=== PATIENT | female | born 1970 | race Caucasian/White ===

== ENCOUNTER 2019-05-24 05:54 | Emergency (ER) | payer MEDICAID, SELFPAY ==
[2019-05-24 05:55] VITALS: BP 149/90; PULSE 76; RESP 18; TEMP 36.3; O2SAT 99; BMI 15.0
--- NOTE | 2019-05-24 06:10 | ED.RN ---
BLOOD SUGAR 101.
[2019-05-24 06:16] LABS: Bedside Glucose 101 mg/dL (70-110)
--- NOTE | 2019-05-24 06:26 | CT_ITS ---
Clinical statement: facial numbness and tingling, now resolved EXAMINATION: CT Head or Brain W/O Contrast Injection TECHNIQUE: Multiple axial images were obtained of the brain without intravenous contrast. A radiation dose optimization technique was used for this scan. IV Contrast dosage and agent: None COMPARISON: None FINDINGS: Normal ventricles and normal olivera-white matter differentiation. Small CSF perivascular space inferior to the left basal ganglia and not unusual. No intracranial mass, hemorrhage, or acute parenchymal abnormality. The posterior fossa structures are unremarkable. No suspicious extra-axial fluid collection. As visualized, the mastoids are clear. CT/Brain/Head without Contrast IMPRESSION: Normal CT brain without contrast. Individualized dose optimization techniques were used for this CT. at 0656 Reported and signed by: Harman Casas MD Electronically Signed: Harman Casas, at 6:55 EDT Tel , Service support ,
--- NOTE | 2019-05-24 06:26 | EKG12_ITS ---
Test Reason : NEURO S/SX Blood Pressure : / mmHG Vent. Rate : 067 BPM Atrial Rate : 067 BPM P-R Int : 156 ms QRS Dur : 078 ms QT Int : 424 ms P-R-T Axes : 063 022 044 degrees QTc Int : 448 ms Normal sinus rhythm Normal ECG Confirmed by AYSHA GREY, DELBERT ([id number]), sound editor PERRY CARREON ([id number]) on 05/28/2019 9:07:22 AM Referred By: ZEE Confirmed By:DELBERT OLMSTEAD MD
--- NOTE | 2019-05-24 06:28 | ED.VISSUMM ---
- ER Visit Summary Date of Service: 05/24/19 Chief Complaint: Numbness and tingling History of Present Illness: The patient is a 48 F who presents with numbness and tingling that began today while she was driving to work. Patient states she clocked into work and told her [employer] supervisor that she did not feel well. Patient then came to the emergency department. Patient states that upon arrival she felt fine. Patient states she has a history of prior TIA. Patient states her numbness and tingling was more on the left side of her head and neck and chest. Patient denies any difficulty swallowing or difficulty talking. Patient denies any weakness. Patient denies any headaches. Patient denies any chest pain or shortness of breath. Patient denies any nausea or vomiting. Physical Examination: Vital signs are stable. Patient is afebrile. Patient is in no acute distress. Oral mucosa is pink and moist. Neck is supple. Trachea is midline. There is no JVD noted. Heart was regular rate and rhythm. Lungs are clear and equal bilaterally. Abdomen is soft. Bowel sounds are normal. There is no tenderness. There is no rebound or guarding noted. Skin is warm dry. Cranial nerves II through XII are intact. There are no focal motor or sensory deficits noted. Extremities are intact. There is no calf tenderness or edema. Test Results: CBC, comprehensive metabolic profile, troponin were obtained and were all within normal limits. CT scan of the brain was obtained. There is no acute intracranial abnormality. This was interpreted by the radiologist and reviewed by myself. EKG showed a normal sinus rhythm with a rate of 67. There are no acute ST or T wave changes. Emergency Department Course and Treatment: Patient was given IV fluids. Patient had no further complaints during her emergency department stay. Patient was advised to follow-up with her primary care physician in 5 to 7 days for further evaluation. Patient understood and was agreeable with the plan. All questions were answered. Disposition: Discharge home Impression: Paresthesias This note was generated with [employer] dictation software. It may contain incorrect words, spelling, and punctuation that were not noted in review of the chart prior to signing ED Disposition - Plan for ED Patient: Disposition: Home or Assisted Living Diagnosis: Paresthesias Instructions: ED Paraesthesias Referrals: NOT,DEFINED [NON-STAFF] - 5-7 Days
[2019-05-24 06:34] LABS: Absolute Lymphocyte Count 2.68 X10^3/uL (0.83-4.51); Absolute Neutrophil Count 8.3 X10^3/uL (2.0-7.7); Basophil# 0.03 X10^3/uL; Basophil% 0.2 % (0-1); Eosinophil# 0.14 X10^3/uL; Eosinophils% 1.2 % (0-5); Hematocrit 42.7 % (37-47); Lymphocyte # 2.68 X10^3/ul (4.0); Lymphocyte % 22.2 % (19-41); Mean Corp Hgb Conc 32.8 g/dL (32-36); Mean Corpuscular Hgb 30.4 pg (27.0-32.0); Mean Corpuscular Volume 92.6 fL (81-99); Mean Platelet Vol. 10.9 fl (6.2-12.0); Monocyte# 0.82 X10^3/uL; Monocyte% 6.8 % (0-10); NRBC Flagged by Analyzer 0 % (0-5); Neutrophil # 8.34 X10^3/uL (2.7-7.7); Neutrophil % 69.3 % (47-70); Platelet Count 218 K/mm3 (150-450); RBC Distribution Width CV 13.5 % (11.6-14.6); RBC Distribution Width SD 45.8 fl (35.1-43.9); Red Blood Count 4.61 M/mm3 (4.2-5.4); White Blood Count 12.1 K/mm3 (4.4-11.0)
[2019-05-24] MEDS: 0.9% Normal Saline 1,000 ML 1000 ML IV (06:40)
[2019-05-24 06:46] LABS: ALB/GLOB Ratio 0.9 RATIO (0.9-2.4); AST(SGOT) 22 U/L (15-37); Alanine Aminotransfer ALT/SGPT 25 U/L (13-56); Albumin, Serum 3.4 g/dL (3.2-5.0); Alkaline Phosphatase 93 U/L (45-117); Anion Gap 5 (5-15); BUN 8 mg/dL (7-18); BUN/Creat Ratio 11.9 RATIO (10-20); Calcium,Total 8.2 mg/dL (8.5-10.1); Chloride 110 mmol/L (98-107); Creatinine, Serum 0.67 mg/dL (0.55-1.02); EST Glomerular Filtration Rate 99 mL/min (>60); Est Glom Filt Rate - Afr Amer 119 mL/min (>60); Globulin 3.6 g/dL (2.2-4.2); Glucose 93 mg/dL (74-106); Potassium 3.8 mmol/L (3.5-5.1); Sodium Level 140 mmol/L (136-145)
[2019-05-24 07:41] VITALS: BP 136/76; PULSE 67; RESP 16; O2SAT 95
== END 2019-05-24 08:31 | disposition home or self-care (01) ==
PROVIDERS: Emergency Provider Emergency Medicine
DX: R20.2 Paresthesia of skin (principal); Z86.73 Personal history of transient ischemic attack (TIA), and cerebral infarction without residual deficits
CPT/HCPCS: 70450; 80053; 82962; 84484; 85025; 93005; 96360; 99285; J7030; A4216

== ENCOUNTER 2019-11-16 12:27 | Emergency (ER) | payer MEDICAID, SELFPAY ==
[2019-11-16 12:28] VITALS: BP 146/113; PULSE 97; RESP 15; TEMP 37.4; O2SAT 99; BMI 31.5
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
[2019-11-16 13:52] LABS: Absolute Lymphocyte Count 2.39 X10^3/uL (0.83-4.51); Absolute Neutrophil Count 7.8 X10^3/uL (2.0-7.7); Basophil# 0.04 X10^3/uL; Basophil% 0.4 % (0-1); Eosinophil# 0.06 X10^3/uL; Eosinophils% 0.5 % (0-5); Hematocrit 45.1 % (37-47); Hemoglobin 14.5 g/dL (12.0-15.0); Lymphocyte # 2.39 X10^3/ul (4.0); Lymphocyte % 21.8 % (19-41); Mean Corp Hgb Conc 32.2 g/dL (32-36); Mean Corpuscular Hgb 30.7 pg (27.0-32.0); Mean Corpuscular Volume 95.3 fL (81-99); Monocyte# 0.63 X10^3/uL; Monocyte% 5.7 % (0-10); NRBC Flagged by Analyzer 0 % (0-5); Neutrophil # 7.82 X10^3/uL (2.7-7.7); Neutrophil % 71.3 % (47-70); Platelet Count 209 K/mm3 (150-450); RBC Distribution Width CV 13.4 % (11.6-14.6); RBC Distribution Width SD 47.7 fl (35.1-43.9); Red Blood Count 4.73 M/mm3 (4.2-5.4)
[2019-11-16 13:54] LABS: Amphetamine Urine VISTA NEGATIVE (<1000 ng/mL); Barbiturate Urine VISTA NEGATIVE (< 200 ng/mL); Benzodiazepine Urine VISTA NEGATIVE (< 200 ng/mL); Cocaine Urine VISTA NEGATIVE (< 300 ng/mL); Ecstacy Urine VISTA NEGATIVE (< 500 ng/mL); Methadone Urine VISTA NEGATIVE (< 300 ng/mL); PCP Urine VISTA NEGATIVE (< 25 ng/mL); THC Urine VISTA NEGATIVE (< 50 ng/mL); Vista UDS pH Range 6
[2019-11-16 13:59] LABS: Internal QC Validated? YES +Cl - CLEAR BKGD; Pregnancy, Serum, hCG Quali. NEGATIVE Negative
[2019-11-16 14:02] LABS: Mucous, Urine 0 SEEN /hpf (<or=2+); Red Blood Cells-Urine 0 SEEN /hpf (0-5); White Blood Cells 0 SEEN /hpf (0-5)
[2019-11-16 14:03] LABS: Anion Gap 5 (5-15); BUN 9 mg/dL (7-18); BUN/Creat Ratio 11.4 RATIO (10-20); Calcium,Total 9.3 mg/dL (8.5-10.1); Chloride 110 mmol/L (98-107); Creatinine, Serum 0.79 mg/dL (0.55-1.02); EST Glomerular Filtration Rate 82 mL/min (>60); Est Glom Filt Rate - Afr Amer 99 mL/min (>60); Estimated Creatinine Clearance 63.57 ml/min; Glucose 89 mg/dL (74-106); Potassium 3.5 mmol/L (3.5-5.1); Sodium Level 142 mmol/L (136-145)
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
[2019-11-16 14:09] LABS: Color, Urine Yellow (Yellow); Glucose, Dipstick Normal (Normal); Ketone-Dipstick Negative (Negative); Leukocyte Esterase-Dipstick Negative /ul (Negative); Nitrite-Dipstick Negative (Negative); Occult Blood-Urine Negative /ul (Negative); Protein-Dipstick Negative (Negative); Urine Bilirubin Dipstick Negative (Negative); Urine Clarity Sl. Cloudy (Clear); Urine Urobilinogen 1 mg/dl (Normal)
[2019-11-16 14:13] LABS: Alcohol, Blood (Medical)-Serum < 3.0 mg/dL
[2019-11-16 14:16] LABS: Bacteria 2+ /hpf (None Seen); Squamous Epithelial Cells - UA 0-5 SEEN /hpf (5-10)
--- NOTE | 2019-11-16 15:11 | CM.ED ---
Social Work Patient medically cleared by Dr. Sánchez. Telephone call to [facility]. Referral made. Clinical information faxed. [facility] confirms that [facility] is in network with patient insurance and that there are open female adult beds. Xuan WEEMS, HOANG
--- NOTE | 2019-11-16 16:31 | CM.ED ---
Social Work Telephone call from [facility]. Patient has been accepted by [facility] Patient to admit to [address] [place] [address]. Nursing to call report to [phone]. Updated patient, patient spouse and medical team. [place] slip faxed. Xuan Portillo MSW, HOANG
[2019-11-16 18:00] VITALS: RESP 17
[2019-11-16 18:56] VITALS: BP 135/70; PULSE 84; RESP 16; O2SAT 95
== END 2019-11-16 18:48 ==
LOC: ED 13:15
PROVIDERS: Emergency Provider Emergency Medicine
DX: F29 Unspecified psychosis not due to a substance or known physiological condition (principal); F22 Delusional disorders; I10 Essential (primary) hypertension; Z72.0 Tobacco use
CPT/HCPCS: 80048; 80307; 80320; 81001; 84703; 85025; 99283; G0480

== ENCOUNTER 2020-02-12 11:33 | Observation (INO) | payer MEDICAID, SELFPAY ==
[2020-02-12] VITALS (8 sets, daily range): BP systolic 120–163; BP diastolic 74–110; PULSE 66–99; RESP 14–20; TEMP 36.1–37.1; O2SAT 94–99; BMI 27.4; BMI 29.7
--- NOTE | 2020-02-12 11:39 | ED.RN ---
[facility] [phone]
--- NOTE | 2020-02-12 11:52 | EKG12_ITS ---
Test Reason : FALL Blood Pressure : / mmHG Vent. Rate : 081 BPM Atrial Rate : 081 BPM P-R Int : 142 ms QRS Dur : 080 ms QT Int : 382 ms P-R-T Axes : 055 000 021 degrees QTc Int : 443 ms Normal sinus rhythm Normal ECG Confirmed by AYSHA GREY, DELBERT ([id number]), editorial clerk YAN ROGER ([id number]) on 02/14/2020 8:38:34 AM Referred By: RU Confirmed By:DELBERT OLMSTEAD MD
--- NOTE | 2020-02-12 12:02 | CT_ITS ---
STUDY: CT BRAIN WITHOUT CONTRAST REASON FOR EXAM: Female, 49 years old. FALL, DIZZY, BLACK EYES, BLOODY NOSE RADIATION DOSAGE (If Supplied By Facility): CTDIvol = ( 44.99 ) mGy, DLP = ( 762.36 ) mGycm TECHNIQUE: Transaxial CT imaging of the brain was performed without administration of intravenous contrast material. Individualized dose optimization techniques were used for this CT. COMPARISON: 05/24/2019 FINDINGS: Normal soft tissue structures. Normal calvarium. Normal size ventricles and extra-axial spaces for the patient''s age. Normal white matter tracts of the cerebral hemispheres. Normal basal ganglia and thalami. Normal brainstem. Normal cerebellum. There is no intracranial hemorrhage. There are no findings of an acute ischemic infarction. Normal visualized paranasal sinuses. CT/Brain/Head without Contrast IMPRESSION: Normal unenhanced CT scan of the brain. Electronically Signed: Ranjan Dent MD at 12:18 EST Tel , Service support ,
[2020-02-12 12:19] LABS: Anion Gap 4 (5-15); BUN 9 mg/dL (7-18); BUN/Creat Ratio 10.1 RATIO (10-20); Calcium,Total 8.9 mg/dL (8.5-10.1); Chloride 108 mmol/L (98-107); Creatinine, Serum 0.89 mg/dL (0.55-1.02); EST Glomerular Filtration Rate 71 mL/min (>60); Est Glom Filt Rate - Afr Amer 86 mL/min (>60); Estimated Creatinine Clearance 59.15 ml/min; Glucose 101 mg/dL (74-106); Potassium 3.4 mmol/L (3.5-5.1); Sodium Level 141 mmol/L (136-145)
[2020-02-12] MEDS: Meclizine HCl 25 MG Tablet PO (12:39)
[2020-02-12] MEDS: 0.9% Normal Saline 1,000 ML 150 ML IV (12:39)
[2020-02-12 12:46] LABS: Absolute Lymphocyte Count 2.22 X10^3/uL (0.83-4.51); Absolute Neutrophil Count 9.1 X10^3/uL (2.0-7.7); Basophil# 0.05 X10^3/uL; Basophil% 0.4 % (0-1); Eosinophil# 0.14 X10^3/uL; Eosinophils% 1.1 % (0-5); Hematocrit 43.7 % (37-47); Hemoglobin 14.3 g/dL (12.0-15.0); Lymphocyte # 2.22 X10^3/ul (4.0); Lymphocyte % 17.8 % (19-41); Mean Corp Hgb Conc 32.7 g/dL (32-36); Mean Corpuscular Hgb 30.3 pg (27.0-32.0); Mean Corpuscular Volume 92.6 fL (81-99); Mean Platelet Vol. 12.2 fl (6.2-12.0); Monocyte% 7.2 % (0-10); NRBC Flagged by Analyzer 0 % (0-5); Neutrophil % 73.2 % (47-70); Platelet Count 206 K/mm3 (150-450); RBC Distribution Width CV 13.2 % (11.6-14.6); RBC Distribution Width SD 45.7 fl (35.1-43.9); Red Blood Count 4.72 M/mm3 (4.2-5.4); White Blood Count 12.5 K/mm3 (4.4-11.0)
[2020-02-12 12:50] LABS: Alcohol, Blood (Medical)-Serum < 3.0 mg/dL
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
--- NOTE | 2020-02-12 14:06 | ED.DCSUM_ITS ---
- ER Visit Summary Date of Service: 02/12/20 Chief Complaint: [Fall with injury to head and dizziness] History of Present Illness: The patient is a 49 F [presents to the emergency department stating that she had a fall 5 days ago where she tripped and fell on the porch and struck her face on a concrete bench top. No loss of consciousness. Patient states that she had been doing relatively well until today when she had sudden onset of dizziness while in the car. Patient describes vertiginous symptoms and nausea. She denies any significant headache. She denies neck pain. She denies chest pain or shortness of breath. She not had history of vertigo. She denies recent illness. Dizziness is worse with certain movements.] Physical Examination: [HEENT-PERRLA, EOMI. Cranial nerves II through XII grossly intact. TMs clear. Mucous membranes moist. No adenopathy. Patient h as diffuse ecchymosis about both orbits. Patient has soft tissue swelling over the nasal bridge with tenderness on percussion. No septal hematomas noted. Patient has some ecchymosis over the upper maxilla upper lip. Patient has dentures in place. Midface is stable. No C-spine tenderness on palpation. Cardiovascular-regular rate and rhythm without murmur or ectopy Lungs-clear to auscultation, chest wall stable without crepitus or subcu emphysema Abdomen-normoactive bowel sounds, soft, nontender, no rebound or rigidity, no peritoneal signs. Neuro qlka-emhzoc-tccu and heel kinney testing within normal's, negative Romberg, negative pronator, fundi benign. Hallpike maneuver performed patient got acutely dizzy with lying flat and as well as sitting up however I did not appreciate any significant nystagmus. Extremities-intact ?4, normal range of motion, normal pulses, atraumatic] Test Results: [EKG obtained arrival shows sinus rhythm with a ventricular rate of 81 bpm. CBC with differential showed a slight elevated white count 12.5, hemoglobin 14, hematocrit 44, platelets 206. Chemistries unremarkable. Alcohol was negative. CT scan of the brain showed nothing acute. CT facial bones showed nasal bone fractures that were comminuted.] Emergency Department Course and Treatment: [The line established on arrival. Patient had orthostatic vital signs that were negative. Patient was given Antivert 25 mg p.o. and she continues to complain of dizziness at rest. Patient was ordered Ativan 1 mg IV.] Treatment Plan: [Admit for observation] Disposition: [Admit] Impression: [Vertigo/intractable dizziness] This note was generated with [employer] dictation software. It may contain incorrect words, spelling, and punctuation that were not noted in review of the chart prior to signing ED Disposition - Plan for ED Patient: Referrals: Care Physician,No Primary [Primary Care Provider] -
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
--- NOTE | 2020-02-12 14:17 | NURSING ---
MED SURG JOPPERI VERTIGO OBS
--- NOTE | 2020-02-12 14:32 | PCS.PANDOC ---
PANDEMIC DOCUMENTATION INITIATED: Date: 02/12/2020 Time: 1430
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
[2020-02-12] MEDS: LORazepam 2 MG/ML Syringe 1 MG IV (15:13)
[2020-02-13 03:30] VITALS: BP 103/56; PULSE 73; RESP 16; TEMP 36.8; O2SAT 96
[2020-02-13] MEDS: 0.9% Saline Lock 10 ML Syringe IV (03:46)
[2020-02-13 10:34] VITALS: BP 136/97; PULSE 81; RESP 18; TEMP 36.8; O2SAT 94
--- NOTE | 2020-02-13 14:53 | CASEMGMT ---
CR CINTRON updated that patient will need outpatient vestibular therapy. Script received and provided to patient. Patient denies further needs or concerns at this time.
[2020-02-13 15:34] VITALS: BP 128/73; PULSE 71; RESP 16; TEMP 36.8; O2SAT 96
--- NOTE | 2020-02-13 15:34 | DCINST_ITS ---
- Discharge Diagnoses Current Active Problems: Current Active and Chronic Problems (Last Updated 02/12/20 @ 14:[address] Maxim Coy, DO) Vertigo (Acute) Nasal fracture (Acute) You will use the following diet at home:: No restrictions Your food should be the consistency of: Regular Your liquids should be the consistency of: Regular/Thin Discharge Activity: Return to Normal Activity Weight Bearing Status: Full weight bearing Allergies/Adverse Reactions: Allergies No Known Allergies Allergy (Verified 02/12/20 11:36) Medications to take at Discharge Ibuprofen 200 mg PO DAILY PRN 02/12/20 Diazepam [Valium] 2 mg PO 4X/DAY PRN PRN #15 tablet 02/13/20 The following prescriptions were given: Diazepam [Valium] 2 mg PO 4X/DAY PRN PRN #15 tablet PRN Reason: Vertigo Transmission Status: Sent to [id number] Primary Care Physician: Care Physician,No Primary [Primary Care Provider] - Please follow up with your Primary Care Physician in: in one week concerning your nasal fractures Test Results: Test results from this visit will be discussed in further detail at your follow- up appointment, if applicable.
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
== END 2020-02-13 15:43 | disposition home or self-care (01) ==
LOC: ED 12:57 → MS3 14:20
PROVIDERS: Emergency Provider Emergency Medicine; Visit Provider Internal Medicine
DX: R42 Dizziness and giddiness (principal); S02.2XXA Fracture of nasal bones, initial encounter for closed fracture; W10.9XXA Fall (on) (from) unspecified stairs and steps, initial encounter; Y93.9 Activity, unspecified; Y92.89 Other specified places as the place of occurrence of the external cause; F17.210 Nicotine dependence, cigarettes, uncomplicated
CPT/HCPCS: 70450; 70486; 80048; 82077; 85025; 93005; 96361; 96374; 97161; 99218; 99285; J7030; A4216; G0378

== ENCOUNTER 2024-11-11 20:49 | Emergency (ER) | payer SELFPAY ==
--- NOTE | 2024-11-11 20:52 | EKG12_ITS ---
Test Reason : STROKE ALERT Blood Pressure : */* mmHG Vent. Rate : 90 BPM Atrial Rate : 90 BPM P-R Int : 156 ms QRS Dur : 76 ms QT Int : 368 ms P-R-T Axes : 51 -1 21 degrees QTcB Int : 450 ms Sinus rhythm with occasional Premature ventricular complexes Otherwise normal ECG Confirmed by AYSHA GREY, DELBERT ([id number]), online editor YAN ROGER ([id number]) on 11/13/2024 1:23:27 PM Referred By: JALEN Confirmed By: DELBERT OLMSTEAD MD
--- NOTE | 2024-11-11 20:52 | CT_ITS ---
PROCEDURE: STROKE BRAIN/HEAD WITHOUT CONT 11/11/2024 REASON FOR EXAM: NEURO DEFICIT, ACUTE, STROKE SUSPECTED Thank you 0 TECHNIQUE: Procedure Code: CTBR.ST Modality: CT Procedure: STROKE BRAIN/HEAD WITHOUT CONT Coronal and Sagittal reconstruction series were provided. One or more dose reduction techniques were used (e.g., Automated exposure control, adjustment of the mA and/or kV according to patient size, use of iterative reconstruction technique. COMPARISON: 02/12/2020 FINDINGS: Normal brainstem. Normal cerebellum. No loss of olivera-white differentiation. No hemorrhage. No hydrocephalus. No extra-axial fluid collection. Sinuses are clear. CT/STROKE Brain/Head without Cont IMPRESSION: No acute abnormality. Called to the wheelchair rental clerk at [facility] at 9:10 pm Reading [facility]
[2024-11-11 20:53] VITALS: BP 190/106; PULSE 85; RESP 18; TEMP 37; O2SAT 97; BMI 30.4
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
--- OUTSIDE RECORDS SUMMARY | 2024-11-11 20:55 | XMS RPT_ITS | CCD ---
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 [address] [place], [address] BILIRUBIN URINE Negative Normal Negative [facility] Comment on above: Order Comment: How w as Urine Obtained? CLEAN CATCH Performed By: #### L 400.0001 #### [facility] [address] [place], [address] Clarity (U) Sl. Cloudy Normal Clear [facility] Comment on above: Order Comment: How w as Urine Obtained? CLEAN CATCH Performed By: #### L 400.0001 #### [facility] [address] [place], [address] Color (U) Yellow Normal Yellow [facility] Comment on above: Order Comment: How w as Urine Obtained? CLEAN CATCH Performed By: #### L 400.0001 #### [facility] [address] [place], [address] GLUCOSE, UR Normal Normal Normal [facility] Comment on above: Order Comment: How w as Urine Obtained? CLEAN CATCH Performed By: #### L 400.0001 #### [facility] [address] [place], [address] KETONE UR Negative Normal Negative [facility] Comment on above: Order Comment: How w as Urine Obtained? CLEAN CATCH Performed By: #### L 400.0001 #### [facility] [address] [place], [address] LEUK ESTERASE Negative Normal Negative [facility] Comment on above: Order Comment: How w as Urine Obtained? CLEAN CATCH Performed By: #### L 400.0001 #### [facility] [address] [place], [address] NITRITE UR Negative Normal Negative [facility] Comment on above: Order Comment: How w as Urine Obtained? CLEAN CATCH Performed By: #### L 400.0001 #### [facility] [address] [place], [address] OCCULT BLOOD-UR Negative Normal Negative [facility] Comment on above: Order Comment: How w as Urine Obtained? CLEAN CATCH Performed By: #### L 400.0001 #### [facility] [address] [place], [address] pH UR 6.0 Normal 5.0 - 8.0 [facility] Comment on above: Order Comment: How w as Urine Obtained? CLEAN CATCH Performed By: #### L 400.0001 #### [facility] [address] [place], [address] PROT DIPSTX Negative Normal Negative [facility] Comment on above: Order Comment: How w as Urine Obtained? CLEAN CATCH Performed By: #### L 400.0001 #### [facility] [address] [place], [address] SP.GR. DIPSTX 1.010 Normal 1.002-1.030 [facility] Comment on above: Order Comment: How w as Urine Obtained? CLEAN CATCH Performed By: #### L 400.0001 #### [facility] [address] [place], [address] UROBILI 1 mg/dl High Normal [facility] Comment on above: Order Comment: How w as Urine Obtained? CLEAN CATCH Performed By: #### L 400.0001 #### [facility] [address] [place], [address] Urine Drug Screen (VISTA)on 11-16-2019 Amphetamines Ql (U) Negative Normal <1000 ng/mL [facility] Comment on above: Order Comment: List of Drugs Taken or Suspected? UNK Performed By: #### L 505.5000 #### [facility] [address] [place], [address] BARBITIURATES Negative Normal < 200 ng/mL [facility] Comment on above: Order Comment: List of Drugs Taken or Suspected? UNK Performed By: #### L 505.5000 #### [facility] [address] [place], [address] BENZODIAZIPINE Negative Normal < 200 ng/mL [facility] Comment on above: Order Comment: List of Drugs Taken or Suspected? UNK Performed By: #### L 505.5000 #### [facility] [address] [place], [address] Cocaine Ql (U) Negative Normal < 300 ng/mL [facility] Comment on above: Order Comment: List of Drugs Taken or Suspected? UNK Performed By: #### L 505.5000 #### [facility] [address] [place], [address] ECSTACY Negative Normal < 500 ng/mL [facility] Comment on above: Order Comment: List of Drugs Taken or Suspected? UNK Performed By: #### L 505.5000 #### [facility] [address] [place], [address] Methadone Ql (U) Negative Normal < 300 ng/mL [facility] Comment on above: Order Comment: List of Drugs Taken or Suspected? UNK Performed By: #### L 505.5000 #### [facility] [address] [place], [address] Opiates Ql (U) Negative Normal < 300 ng/mL [facility] Comment on above: Order Comment: List of Drugs Taken or Suspected? UNK Performed By: #### L 505.5000 #### [facility] [address] [place], [address] PCP Negative Normal < 25 ng/mL [facility] Comment on above: Order Comment: List of Drugs Taken or Suspected? UNK Performed By: #### L 505.5000 #### [facility] [address] [place], [address] THC Negative Normal < 50 ng/mL [facility] Comment on above: Order Comment: List of Drugs Taken or Suspected? UNK Performed By: #### L 505.5000 #### [facility] [address] [place], [address] VISTA UDS PH 6 Normal [facility] Comment on above: Order Comment: List of Drugs Taken or Suspected? UNK Performed By: #### L 505.5000 #### [facility] [address] [place], [address] TO BE CONFIRMED Normal [facility] Comment on above: Order Comment: List of Drugs Taken or Suspected? UNK Result Comment: CONF IRMATORY TESTING FOR ALL POSITIVE URINE DRUG SCREEN RESULTS WILL ONLY BE SENT OUT UPON PHYSICIAN ORDER. VISTA Urine Drug Screen methods provide only preliminary analytical test results. A more specific alternate chemical method must be used in order to obtain a confirmed analytical result. Gas chromatography/mass spectrometery (GC/MS) is the preferred confirmatory method. Clinical consideration and professional judgement should be applied to any drug of abuse test result, particularly when preliminary positive results are used. URINE TCA TESTING MUST BE ORDERED SEPARATELY. USE TEST MNEMONIC: UTCA Performed By: #### L 505.5000 #### [facility] [address] [place], [address] Bedside Glucoseon 05-24-2019 BEDSIDE GLU 101 mg/dL Normal 70-110 [facility] Comment on above: Result Comment: HENRI ZAFAR OF PATIENT CARE PER NURSING PROTOCOL Performed By: #### L 501.080 #### [facility] Point of Care [address] [place] [address] Brain/Head without Contrasto n 05-24-2019 Brain/Head without Contrast [facility] Imaging Services [address] [place] [address] Brain/Head without Contrast MR#: [id number] Acct: [id number] Name: TALYA GARCIA Rep #: [id number] : 1970 F 48 From: Harman Casas MD PCP: NOT, DEFINED Status: PRE ER Study: Brain/Head without Contrast Date of Exam: 05/24/19 Exam# [id number] Ordering Dr: Maxim Woodward DO Clinical statement: facial numbness and tingling, now resolved EXAMINATION: CT Head or Brain W/O Contrast Injection TECHNIQUE: Multiple axial images were obtained of the brain without intravenous contrast. A radiation dose optimization technique was used for this scan. IV Contrast dosage and agent: None COMPARISON: None ____ FINDINGS: Normal ventricles and normal olivera-white matter differentiation. Small CSF perivascular space inferior to the left basal ganglia and not unusual. No intracranial mass, hemorrhage, or acute parenchymal abnormality. The posterior fossa structures are unremarkable. No suspicious extra-axial fluid collection. As visualized, the mastoids are clear. CT/Brain/Head without Contrast IMPRESSION: Normal CT brain without contrast. Individualized dose optimization techniques were used for this CT. at 0656 Reported and signed by: Harman Casas MD Electronically Signed: Harman Casas, at 6:55 EDT Tel , Service support , CC: DEFINED NOT; Maxim Woodward DO Ice Puller: Signed Normal [facility] CBC W/Diff, Automatedon 05-07 Absolute Neut 8.3 X10 3/uL High 2.0-7.7 [facility] Comment on above: Performed By: #### L 100.0100 #### [facility] [address] [place], [address] Basophils/100 WBC (Bld) 0.2 % Normal 0-1 [facility] Comment on above: Performed By: #### L 100.0100 #### [facility] [address] [place], [address] Eosinophils/100 WBC (Bld) 1.2 % Normal 0-5 [facility] Comment on above: Performed By: #### L 100.0100 #### [facility] [address] [place], [address] Erythrocyte distribution width (RBC) [Ratio] 13.5 % Normal 11.6-14.6 [facility] Comment on above: Performed By: #### L 100.0100 #### [facility] [address] [place], [address] Hematocrit (Bld) [Volume fraction] 42.7 % Normal 37-47 [facility] Comment on above: Performed By: #### L 100.0100 #### [facility] [address] [place], [address] Hemoglobin (Bld) [Mass/Vol] 14.0 g/dL Normal 12.0-15.0 [facility] Comment on above: Performed By: #### L 100.0100 #### [facility] [address] [place], [address] IM GRAN % 0.300 % Normal 0.0-0.9 [facility] Comment on above: Result Comment: IG% - Immature Granulocytes (promyelocytes, myelocytes and metamyelocytes) > 1% indicates that a LEFT SHIFT is Present. Performed By: #### L 100.0100 #### [facility] [address] [place], [address] Lymphocytes (Bld) [#/Vol] 2.68 X10 3/uL Normal 0.83-4.51 [facility] Comment on above: Performed By: #### L 100.0100 #### [facility] [address] [place], [address] Lymphocytes/100 WBC (Bld) 22.2 % Normal 19-41 [facility] Comment on above: Performed By: #### L 100.0100 #### [facility] [address] [place], [address] MCH (RBC) [Entitic mass] 30.4 pg Normal 27.0-32.0 [facility] Comment on above: Performed By: #### L 100.0100 #### [facility] [address] [place], [address] MCHC (RBC) [Mass/Vol] 32.8 g/dL Normal 32-36 [facility] Comment on above: Performed By: #### L 100.0100 #### [facility] [address] [place], [address] MCV (RBC) [Entitic vol] 92.6 fL Normal 81-99 [facility] Comment on above: Performed By: #### L 100.0100 #### [facility] [address] [place], [address] Monocytes/100 WBC (Bld) 6.8 % Normal 0-10 [facility] Comment on above: Performed By: #### L 100.0100 #### [facility] [address] [place], [address] Neutrophils/100 WBC (Bld) 69.3 % Normal 47-70 [facility] Comment on above: Performed By: #### L 100.0100 #### [facility] [address] [place], [address] NRBC, FLAGGED 0 % Normal 0-5 [facility] Comment on above: Performed By: #### L 100.0100 #### [facility] [address] [place], [address] Platelet mean volume (Bld) [Entitic vol] 10.9 fL Normal 6.2-12.0 [facility] Comment on above: Performed By: #### L 100.0100 #### [facility] [address] [place], [address] Platelets (Bld) [#/Vol] 218 10*3/uL Normal 150-450 [facility] Comment on above: Performed By: #### L 100.0100 #### [facility] [address] [place], [address] RBC (Bld) [#/Vol] 4.61 M/mm3 Normal 4.2-5.4 [facility] Comment on above: Performed By: #### L 100.0100 #### [facility] [address] [place], [address] RDW SD 45.8 fl High 35.1-43.9 [facility] Comment on above: Performed By: #### L 100.0100 #### [facility] [address] [place], [address] WBC (Bld) [#/Vol] 12.1 10*3/uL High 4.4-11.0 [facility] Comment on above: Performed By: #### L 100.0100 #### [facility] [address] [place], [address] Comprehensive Metabolic Prof [facility] 05-24-2019 Albumin [Mass/Vol] 3.4 g/dL Normal 3.2-5.0 [facility] Comment on above: Performed By: #### L 501.4010, L500.4050 #### [facility] [address] [place], [address] Albumin/Globulin [Mass ratio] 0.9 {ratio} Normal 0.9-2.4 [facility] Comment on above: Performed By: #### L 501.4010, L500.4050 #### [facility] [address] [place], [address] ALK P 93 U/L Normal 45-117 [facility] Comment on above: Performed By: #### L 501.4010, L500.4050 #### [facility] [address] [place], [address] ALT [Catalytic activity/Vol] 25 U/L Normal 13-56 [facility] Comment on above: Performed By: #### L 501.4010, L500.4050 #### [facility] [address] [place], [address] AST [Catalytic activity/Vol] 22 U/L Normal 15-37 [facility] Comment on above: Performed By: #### L 501.4010, L500.4050 #### [facility] [address] [place], [address] Bilirubin [Mass/Vol] 0.20 mg/dL Normal 0.20-1.00 [facility] Comment on above: Result Comment: For patients on eltrombopag therapy, use of Dimension [place] TBIL is not recommended. Performed By: #### L 501.4010, L500.4050 #### [facility] [address] [place], [address] Calcium [Mass/Vol] 8.2 mg/dL Low 8.5-10.1 [facility] Comment on above: Performed By: #### L 501.4010, L500.4050 #### [facility] [address] [place], [address] Chloride [Moles/Vol] 110 mmol/L High 98-107 [facility] Comment on above: Performed By: #### L 501.4010, L500.4050 #### [facility] [address] [place], [address] CO2 [Moles/Vol] 25.0 mmol/L Normal 21.0-32.0 [facility] Comment on above: Performed By: #### L 501.4010, L500.4050 #### [facility] [address] [place], [address] Creatinine [Mass/Vol] 0.67 mg/dL Normal 0.55-1.02 [facility] Comment on above: Result Comment: The validity of the calculated GFR AND GFRAA in patients over 70 years has not been determined. Clinical correlation is essential. Performed By: #### L 501.4010, L500.4050 #### [facility] [address] [place], [address] EST GFR - AA 119 mL/min Normal >60 [facility] Comment on above: Result Comment: Afri can Greek GFR Calc Performed By: #### L 501.4010, L500.4050 #### [facility] [address] [place], [address] Estimated CRCL 55.60 ml/min Normal [facility] Comment on above: Performed By: #### L 501.4010, L500.4050 #### [facility] [address] [place], [address] GAP 5 Normal 5-15 [facility] Comment on above: Performed By: #### L 501.4010, L500.4050 #### [facility] [address] [place], [address] GFR/1.73 sq M predicted among non-blacks MDRD (S/P/Bld) [Vol rate/Area] 99 mL/min/{1.73_m2} Normal >60 [facility] Comment on above: Result Comment: Non- GFR Calc Performed By: #### L 501.4010, L500.4050 #### [facility] [address] [place], [address] Globulin (S) [Mass/Vol] 3.6 g/dL Normal 2.2-4.2 [facility] Comment on above: Performed By: #### L 501.4010, L500.4050 #### [facility] [address] [place], [address] Glucose [Mass/Vol] 93 mg/dL Normal 74-106 [facility] Comment on above: Result Comment: Mike nolasco note revised GLUCOSE reference range effective 2017. Performed By: #### L 501.4010, L500.4050 #### [facility] [address] [place], [address] Potassium [Moles/Vol] 3.8 mmol/L Normal 3.5-5.1 [facility] Comment on above: Performed By: #### L 501.4010, L500.4050 #### [facility] [address] [place], [address] Sodium [Moles/Vol] 140 mmol/L Normal 136-145 [facility] Comment on above: Performed By: #### L 501.4010, L500.4050 #### [facility] [address] [place], [address] T PROT 7.0 g/dL Normal 6.4-8.2 [facility] Comment on above: Performed By: #### L 501.4010, L500.4050 #### [facility] [address] [place], [address] Urea nitrogen [Mass/Vol] 11.9 RATIO Normal 10-20 [facility] Comment on above: Performed By: #### L 501.4010, L500.4050 #### [facility] [address] [place], [address] Urea nitrogen [Mass/Vol] 8 mg/dL Normal 7-18 [facility] Comment on above: Performed By: #### L 501.4010, L500.4050 #### [facility] [address] [place], [address] Emergency Department Summary on 05-24-2019 Emergency Department Summary [facility] Medical Records Department [address] [place] [address] Emergency Department Summary 05/24/19 MR#: [id number] Acct: [id number] Name: TALYA GARCIA Rep #: [id number] : 1970 48 From: Maxim Woodward DO PCP: Care Physician, No Primary Status: REG ER - ER Visit Summary Date of Service: 05/24/19 Chief Complaint: Numbness and tingling History of Present Illness: The patient is a 48 F who presents with numbness and tingling that began today while she was driving to work. 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 Patient then came to the emergency department. Patient states that upon arrival she felt fine. Patient states she has a history of prior TIA. Patient states her numbness and tingling was more on the left side of her head and neck and chest. Patient denies any difficulty swallowing or difficulty talking. Patient denies any weakness. Patient denies any headaches. Patient denies any chest pain or shortness of breath. Patient denies any nausea or vomiting. Physical Examination: Vital signs are stable. Patient is afebrile. Patient is in no acute distress. Oral mucosa is pink and moist. Neck is supple. Trachea is midline. There is no JVD noted. Heart was regular rate and rhythm. Lungs are clear and equal bilaterally. Abdomen is soft. Bowel sounds are normal. There is no tenderness. There is no rebound or guarding noted. Skin is warm dry. Cranial nerves II through XII are intact. There are no focal motor or sensory deficits noted. Extremities are intact. There is no calf tenderness or edema. Test Results: CBC, comprehensive metabolic profile, troponin were obtained and were all within normal limits. CT scan of the brain was obtained. There is no acute intracranial abnormality. This was interpreted by the radiologist and reviewed by myself. EKG showed a normal sinus rhythm with a rate of 67. There are no acute ST or T wave changes. Emergency Department Course and Treatment: Patient was given IV fluids. Patient had no further complaints during her emergency department stay. Patient was advised to follow-up with her primary care physician in 5 to 7 days for further evaluation. Patient understood and was agreeable with the plan. All questions were answered. Disposition: Discharge home Impression: Paresthesias This note was generated with [employer] dictation software. It may contain incorrect words, spelling, and punctuation that were not noted in review of the chart prior to signing ED Disposition - Plan for ED Patient: Disposition: Home or Assisted Living Diagnosis: Paresthesias Instructions: ED Paraesthesias Referrals: NOT,DEFINED [NON-STAFF] - 5-7 Days What to do if you have Problems For any increased pain, shortness of breath, bleeding, nausea or vomiting, chest pain, or any unexpected problems, contact your Primary Care Provider. Call [facility] ([phone]) or report to the closest Emergency Room. Call 911 if necessary. 05/24/19713 Date Maxim Woodward DO Bobigner Signature (If Indicated): Date CC: No Primary Care Physician Normal [facility] Troponin-Ion 05-24-2019 Troponin I.cardiac [Mass/Vol] ng/mL Normal <0.045 [facility] Comment on above: Result Comment: TROP ONIN-I EXPECTED VALUES <0.045 Negative 0.045 - 0.590 Consistent with Cardiac Damage > OR = 0.600 Critical Value Not every elevated troponin is indicative of SC. These values should be used with clinical judgement in examining the patient's clinical picture for diagnosis. To establish a diagnosis of SC versus myocardial injury, there must be a demonstrated rise and/or fall in the troponin values, in addition to ischemic symptoms, EKG changes, new regional wall motion abnormality, and/or angiographical evidence. PLEASE NOTE: REFERENCE RANGES EDITED 17 Performed By: #### L 501.4010, L500.4050 #### [facility] [address] [place], [place], [id number] CT ABDOMEN/PELVIS Won 2018 CT ABDOMEN/PELVIS [address] [address] Patient: JOSETALYA Phone#: : 1970 Age: 48 Gender: F . Pt. Type: ER Account: [id number] Location: 052 Ordering: CHRISTOPH CASTRO Exam Date: 09/07/201821:32 Family Phys: MABEL CASSIDY Charge Code: [id number] Physician: [place] Order #: [id number] DLP Dose#: PROCEDURE: CT ABDOMEN/PELVIS WITH CONTRAST COMPARISON: None. INDICATIONS: Abdominal Pain. TECHNIQUE: After obtaining the patient's consent, CT images were created with non-ionic intravenous contrast material. All CT scans at this facility use dose modulation, iterative reconstruction, and/or weight based dosing when appropriate to reduce radiation dose to as low as reasonably achievable. IV CONTRAST: Omnipaque 350,80ml TOTAL DOSE: 11.80 CTDIvol(mGy) FINDINGS: LIVER: Normal. No enlargement, atrophy, abnormal density, or significant focal lesion. BILIARY: Normal. No visible dilatation or calcification. PANCREAS: Normal. No lesion, fluid collection, ductal dilatation, or atrophy. SPLEEN: Normal. No enlargement or focal lesion. KIDNEYS: Normal. No mass, obstruction, or calcification. ADRENALS: Normal. No mass or enlargement. AORTA/VASCULAR: Normal. No aneurysm or dissection. RETROPERITONEUM: Normal. No mass or adenopathy. BOWEL/MESENTERY: Normal. No visible mass, obstruction, or bowel wall thickening. ABDOMINAL WALL: Normal. No mass or hernia. URINARY BLADDER: Normal. No visible focal wall thickening, lesion, or calculus. PELVIC NODES: Normal. No adenopathy. Continued Report - Page 2 of 2 Patient: TALYA GARCIA Phone#: : 1970 Age: 48 Gender: F . Pt. Type: ER Account: [id number] Location: 052 Ordering: CHRISTOPH CASTRO Exam Date: 09/07/2018/21:32 Family Phys: MABEL KHANH Charge Code: [id number] Physician: Niagara Order #: [id number] DLP Dose#: PELVIC ORGANS: Hypodense foci are present in the lower uterine segment measuring 2.3 cm each and may be related to degenerating fibroid versus nabothian cysts. There is a 3.5 cm left ovarian cyst. BONES: Normal. No bony lesion or fracture. LUNG BASES: Normal. No visible pulmonary or pleural disease. OTHER: Negative. CONCLUSION: 1. There is no evidence of acute abdominal or pelvic abnormality. 2. Probable nabothian cysts in the lower uterine segment. There is a 3.5 cm left ovarian cyst. Dictated by: Giana Boggs MD on 09/09/2018 at 12:32 Approved by: Giana Boggs MD on 09/09/2018 at 12:32 Normal [facility] URINALYSIS WITH MICROSCOPYon 09-07-2018 Amorphous NONE Normal [facility] Comment on above: Performed By: #### 2 62855 #### [facility],[address] [place] [address] Bacteria LM.HPF (Urine sed) [#/Area] TRACE Normal [facility] Comment on above: Performed By: #### 2 36605 #### [facility],[address] [place] [address] Bilirubin [Mass/Vol] Negative Normal NORMAL: NEGATIVE [facility] Comment on above: Performed By: #### 2 08716 #### [facility],[address] [place] [address] Blood Negative Normal NORMAL: NEGATIVE [facility] Comment on above: Performed By: #### 2 97136 #### [facility],[address] [place] [address] Casts LM.LPF (Urine sed) [#/Area] NONE Normal [facility] Comment on above: Performed By: #### 2 89641 #### [facility],[address] [place] [address] Clarity (U) clear Normal NORMAL: CLEAR [facility] Comment on above: Performed By: #### 2 17581 #### [facility],[address] [place] [address] Color (U) p.yel Normal NORMAL: YELLOW [facility] Comment on above: Performed By: #### 2 41268 #### [facility],[address] [place] [address] 125[address] Crystals LM Nom (Urine sed) NONE Normal [facility] Comment on above: Performed By: #### 2 30593 #### [facility],[address] [place] [address] 07635 Epi Cells FEW Normal [facility] Comment on above: Performed By: #### 2 51772 #### [facility],[address] [place] [address] 47467 Glucose [Mass/Vol] NORM Normal NORMAL: NORMAL [facility] Comment on above: Performed By: #### 2 94207 #### [facility],[address] [place] [address] 06051 Ketone Negative Normal NORMAL: NEGATIVE [facility] Comment on above: Performed By: #### 2 74495 #### [facility],[address] [place] [address] 16638 Mucous NONE Normal [facility] Comment on above: Performed By: #### 2 06507 #### [facility],[address] [place] [address] Nitrite Ql (U) Negative Normal NORMAL: NEGATIVE [facility] Comment on above: Performed By: #### 2 69274 #### [facility],[address] [place] [address] 80108 pH (Bld) 5 Normal NORMAL: 5.0-8.0 [facility] Comment on above: Performed By: #### 2 19522 #### [facility],[address] [place] [address] 41731 Protein (U) [Mass/Vol] Negative Normal BLADIMIR L: NEGATIVE [facility] Comment on above: Performed By: #### 2 93688 #### [facility],[address] [place] [address]322 Rbc NONE Normal 0-3 / hpf [facility] Comment on above: Performed By: #### 2 15770 #### [facility],[address] [place] [address] Sp [place] 1.020 Normal NORMAL: 1.010-1.030 [facility] Comment on above: Performed By: #### 2 19619 #### [facility],[address] [place] [address] Specimen type Nom (Spec) R Normal [facility] Comment on above: Performed By: #### 2 46550 #### [facility],[address] [place] [address] URINALYSIS WITH MICROSCOPY Normal [facility] Comment on above: Result Comment: URIN ALYSIS Performed By: #### 2 73997 #### [facility],[address] [place] [address] Urobilinog NORM Normal NORMAL: NORMAL [facility] Comment on above: Performed By: #### 2 15092 #### [facility],[address] [place] [address] Wbc 1-5 Normal 0-5 / hpf [facility] Comment on above: Performed By: #### 2 51906 #### [facility],[address] [place] [address] WBC (Bld) [#/Vol] 25 Abnormal NORMAL: NEGATIVE [facility] Comment on above: Result Comment: URIN E MICROSCOPIC Performed By: #### 2 92522 #### [facility],[address] [place] [address] Yeast LM Ql (Urine sed) NONE Normal [facility] Comment on above: Performed By: #### 2 62985 #### [facility],[address] [place] [address] EMERGENCY REPORTon 9 EMERGENCY REPORT [facility] EMERGENCY ROOM REPORT NAME ACCOUNT SEX AGE ADMIT DISCHARGE PT MED. RECORD# NUMBER DATE DATE TYPE TALYA GARCIA [id number] F 47 07/06/18 3 [id number] ROOM: ER DATE OF : 1970 DICTATING PHYSICIAN: Mracell Clark HISTORY OF PRESENT ILLNESS: The patient came here to the emergency room for evaluation of left sided weakness. The history is obscure but apparently it started somewhere around between 10 and 10:30. She was going to get in her car and drive to the hospital because she was not feeling good and then suddenly she became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
[2024-11-11 21:00] VITALS: BP 177/98; PULSE 92; RESP 18; O2SAT 94
--- NOTE | 2024-11-11 21:05 | CT_ITS ---
PROCEDURE: STROKE CTA HEAD AND NECK W/CON 11/11/2024 REASON FOR EXAM: NEURO DEFICIT, ACUTE, STROKE SUSPECTED TECHNIQUE: Procedure Code: [id number].ST.HN Modality: CT Procedure: STROKE CTA HEAD AND NECK W/CON Multiplanar Sagittal and Coronal images were obtained. 3D post processing was performed. One or more dose reduction techniques were used (e.g., Automated exposure control, adjustment of the mA and/or kV according to patient size, use of iterative reconstruction technique). RADIATION DOSE SUMMARY: DLP: 674.39 mGycm COMPARISON: None. FINDINGS: CTA HEAD: Patent intracranial arterial vasculature. No large vessel occlusion, flow- limiting stenosis, saccular aneurysm, or vascular malformation identified. Dural venous sinuses appear patent. CTA NECK: Left vertebral artery originates directly from the aortic arch. Mild irregular atherosclerotic plaque along the aortic arch. Bilateral cervical carotid and codominant vertebral arteries are patent without significant stenosis. No aneurysm or dissection. Mild atherosclerotic plaque at the carotid bifurcations. CT/STROKE CTA Head AND Neck W/Con IMPRESSION: No large vessel arterial occlusion or significant stenosis in the head/neck. Findings communicated with provider Ania Queen 11/11/2024 at 8:30 p.m. WORKERS COMPENSATION ATTORNEY. Reading Location: [id number]
--- NOTE | 2024-11-11 21:14 | ED.RN ---
Pt refusing to answer questions appropriately or make any effort to perform appropriate assessment. The patient is alert and eyes open, demonstrating the ability to comprehend the questions being asked but responds with shaking the patient's head no and yes, the patient clearly and softly responds with no. NIHSS completed accordingly.
[2024-11-11 21:16] LABS: Hematocrit 44.3 % (37-47); Hemoglobin 14.9 g/dL (12.0-15.0); Immature Granulocytes Count 0.030 X10^3/uL (0.0-0.0); Mean Corp Hgb Conc 33.6 g/dL (32-36); Mean Corpuscular Volume 91.3 fL (81-99); Mean Platelet Vol. 11.7 fl (6.2-12.0); NRBC Flagged by Analyzer 0 % (0-5); Platelet Count 249 K/mm3 (150-450); RBC Distribution Width CV 13.8 % (11.6-14.6); RBC Distribution Width SD 47.2 fl (35.1-43.9); Red Blood Count 4.85 M/mm3 (4.2-5.4); White Blood Count 11.2 K/mm3 (4.4-11.0)
[2024-11-11 21:28] LABS: Prothrombin Time (Protime)PT. 13.5 SECONDS (11.7-14.9)
[2024-11-11 21:29] LABS: Partial Thromboplast Time 30.1 Seconds (24.1-36.2)
[2024-11-11 21:30] VITALS: BP 164/97; PULSE 86; RESP 18; O2SAT 94
[2024-11-11 21:33] LABS: Anion Gap 12 (5-15); BUN 10 mg/dL (4-19); BUN/Creat Ratio 11.0 RATIO (10-20); Calcium,Total 9.4 mg/dL (7.6-11.0); Carbon Dioxide 24.9 mmol/L (21.0-32.0); Chloride 105 mmol/L (98-108); Estimated Creatinine Clearance 69.49 ml/min (50-250); Glucose 86 mg/dL (70-99); Potassium 3.9 mmol/L (3.3-5.1); Troponin T High Sensitivity < 6 ng/L (<=14)
[2024-11-11 21:42] LABS: Mucous, Urine 0 SEEN /hpf (<or=2+)
[2024-11-11 21:42] LABS: Alcohol, Blood (Medical)-Serum < 10.1 mg/dL (<=10.0)
[2024-11-11 21:53] VITALS: BMI 30.4
[2024-11-11 21:58] LABS: Barbiturate Urine NEGATIVE (< 200 ng/mL); Benzodiazepine Urine NEGATIVE (< 200 ng/mL); PCP Urine NEGATIVE (< 25 ng/mL); THC Urine NEGATIVE (< 50 ng/mL)
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
[2024-11-11 22:00] VITALS: BP 145/91; PULSE 78; RESP 18; TEMP 37.2; O2SAT 95
[2024-11-11 22:02] LABS: Color, Urine Straw (Yellow); Glucose, Dipstick Normal (Normal); Ketone-Dipstick Negative (Negative); Leukocyte Esterase-Dipstick Negative /ul (Negative); Nitrite-Dipstick Negative (Negative); Occult Blood-Urine Negative /ul (Negative); Protein-Dipstick Negative (Negative); Specific Gravity, Urine 1.010 (1.002-1.030); Urine Bilirubin Dipstick Negative (Negative)
[2024-11-11 22:30] LABS: Red Blood Cells-Urine 0-5 SEEN /hpf (0-5); Squamous Epithelial Cells - UA 0-5 SEEN /hpf (5-10)
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
[2024-11-11 23:03] VITALS: BP 139/90; PULSE 86; RESP 18; TEMP 37.2; O2SAT 95
--- NOTE | 2024-11-11 23:04 | ED.RN ---
This RN went into the patient's room to obtain the patient's 2HR troponin blood work and take the patient to the floor. This RN explained to the patient the reason behind the repeat blood work and this RN explained that this RN would be taking the patient up to the floor. This RN explained that the inpatient area of the hospital was at the other end of the hospital and they are welcome to follow us up there or if they were going home for the night they can say kalyani in the ED before returning home. The patient's daughter asked so we are not allowed to stay with her? This RN explained that the visiting hours are over so it is up to the nurse in the floor, so I cannot confirm but they are able to come up and ask the nurse upstairs. The patient stated I am not staying in this hospital. My sister is about to and I do not know what all of you people do not understand about that. This RN explained to the patient that even though her condition improved since she has been here, it does not mean that she does not need further testing. The patient responded with I am not staying here, I want to go home. This RN asked if there was something that changed and the patient raised her voice at this RN saying, I don't want to stay here when my sister is actively dying or could be already. This RN asked the patient to lower her voice and to speak respectfully towards this RN as this RN was attempting to help the patient. This RN attempted to educate the patient, the patient cut this RN off stating I am not staying here. This RN asked the patient if she would like to leave AMA and sign the appropriate paperwork stating that. The patient stated yes get me the paperwork. To note, the patient's family was at bedside during this conversation, the patient's family did not ask any further questions during this time. This RN notified Dr. Queen, got the appropriate paperwork and reentered the room with Dr. Queen. Dr. Queen educated the patient on the risks of leaving AMA and the benefits of staying and receiving a full workup to rule out a stroke. The patient stated, I understand, but I don't want to stay here. I feel fine and I think it is all just anxiety, could I have something for anxiety. Dr. Queen instructed the patient to follow up with her PCP and request something anxiety control. The patient's daughter informed this RN and Dr. Queen that the patient is scared to get the notification of her sister's while at the hospital. The patient had no further questions and despite education from Dr. Queen, the patient still requested to leave. Vendor Analyst, charge nurse, and hospitalist notified.
[2024-11-11 23:25] LABS: FOLATES,SERUM (FOLIC ACID) 6.48 ng/mL (4.60-34.80)
[2024-11-11 23:51] LABS: Troponin T High Sens 2 HR < 6 ng/L (<=14)
== END 2024-11-11 23:00 | disposition left against medical advice (07) ==
LOC: ED 21:43 → PCU 22:55
PROVIDERS: Student in an Organized Health Care Education/Training Program; Emergency Provider Internal Medicine; Visit Provider Internal Medicine
DX: R29.898 Other symptoms and signs involving the musculoskeletal system (principal); R47.89 Other speech disturbances; Z68.30 Body mass index [BMI] 30.0-30.9, adult; E66.811 Obesity, class 1; F17.200 Nicotine dependence, unspecified, uncomplicated; Z53.29 Procedure and treatment not carried out because of patient's decision for other reasons
CPT/HCPCS: 70450; 70496; 70498; 80048; 80307; 81001; 82077; 82746; 83036; 84443; 84484; 85025; 85610; 85730; 93005; 99285; Q9967; A4216